=== PATIENT | male | born 1985 | race Caucasian/White ===

== ENCOUNTER 2019-04-06 19:47 | Emergency (ER) | payer BC ==
[~2019-04-06] VITALS: Ht 170.2 cm; Wt 74.8 kg
[2019-04-06 19:50] VITALS: BP 156/79
--- NOTE | 2019-04-06 19:50 | NUR ---
TO BED # 03 AMBULATORY
--- NOTE | 2019-04-06 20:05 | NUR ---
33 Y MALE BIB GIRLFRIEND C/O ANXIETY, ANXIOUS, NUMBNESS ON HIS RT ARM. PT STATES IT STARTED WHILE HE WAS AT [facility] TODAY, APPROX 2 HOURS AGO, AND HE SUDDENLY FELT A SUDDEN ONSET OF PANIC. DENIES SOB OR CHEST PAIN AT THIS TIME. -N/V/D. VSS AT THIS TIME. PT [id number]. RR EVEN AND UNLABORED, SPEAKING IN CLEAR AND FULL SENTENCES. PT AA0X4. BED IS DOWN, LOCKED, BED RAILX 1, ERMD TO SEE PT. PMH- DENIES
--- NOTE | 2019-04-06 20:08 | NUR ---
PT AMB TO RESTROOM WITH STEADY GAIT
--- NOTE | 2019-04-06 21:05 | NUR ---
REPORT GIVEN TO AVILA UPTON
--- NOTE | 2019-04-06 21:06 | NUR ---
RECEIVED REPORT FROM THUAN UPTON.
--- NOTE | 2019-04-06 21:40 | NUR ---
Dr. Marte evaluating patient at bedside.
[2019-04-06 21:55] VITALS: BP 148/85
--- NOTE | 2019-04-06 21:55 | NUR ---
Patient discharged with v/s stable. Written and verbal after care instructions given and explained. Patient alert, oriented and verbalized understanding of instructions. Ambulatory with steady gait. All questions addressed prior to discharge. ID band removed. Patient advised to follow up with PMD. Rx of ATARAX 25MG given. Patient educated on indication of medication including possible reaction and side effects. Opportunity to ask questions provided and answered.
== END 2019-04-06 21:55 | disposition home or self-care (01) ==
LOC: MED 19:47
DX: F41.9 Anxiety disorder, unspecified (principal); R53.1 Weakness
CPT/HCPCS: 81002; 99283